=== PATIENT | female | born 1985 | race Caucasian/White ===

== ENCOUNTER → 2023-12-26 20:38 | Outpatient (REF) | payer BC, SELFPAY | LOC: MRI 20:38 | PROVIDERS: ATTENDING PHYSICIAN Physician Assistant Surgical; FAMILY PHYSICIAN Family Medicine | DX: G95.9 Disease of spinal cord, unspecified (principal) | CPT/HCPCS: 72141 ==

== ENCOUNTER → 2024-02-28 14:23 | Outpatient (REF) | payer BC, SELFPAY | LOC: PAVMRI 14:23 | PROVIDERS: ATTENDING PHYSICIAN Specialist | DX: R20.0 Anesthesia of skin (principal) | CPT/HCPCS: 70553; A9575 ==